=== PATIENT | male | born 1955 | race African-American/Black ===

== ENCOUNTER 2023-01-02 18:10 | Emergency (ER) | payer MEDICARE, MEDICAID ==
[~2023-01-02] VITALS: Ht 175.3 cm; Wt 89.0 kg
[~2023-01-02 18:10] MED LIST: AMLO10TA80 PO; FINA5TAB11 PO; HYDR-4009 MT; TAMS-11 PO
[2023-01-02 18:30] VITALS: BP 125/76; PULSE 99; RESP 16; TEMP 96.8; O2SAT 98
[2023-01-02] MEDS ORDERED: HYDROCODONE/ACETAMINOPHEN 10/325MG TABLET PO ONE (19:30)
[2023-01-02] MEDS ORDERED: METHOCARBAMOL 750MG TABLET PO SCH (19:30)
[2023-01-02] MEDS ORDERED: KETOROLAC 60MG/2ML VIAL IM ONE (19:30)
[2023-01-02] MEDS ORDERED: METHOCARBAMOL 500MG TABLET PO NR (20:15)
[2023-01-03] MEDS ORDERED: LIDO1ADH23 TP (01:49)
[2023-01-03] MEDS ORDERED: IBUP-2028 MT (01:49)
[2023-01-03] MEDS ORDERED: METH-653 MT (01:49)
== END 2023-01-03 02:21 | disposition home or self-care (01) ==
LOC: ER 18:10
DX: M54.50 Low back pain, unspecified (principal); R53.1 Weakness; V49.49XA Driver injured in collision with other motor vehicles in traffic accident, initial encounter; Y93.89 Activity, other specified; Y92.89 Other specified places as the place of occurrence of the external cause; Y99.8 Other external cause status
CPT/HCPCS: 99285; 70450; 96372; 72125; 72128; 72131; J1885